=== PATIENT | male | born 1965 | race Caucasian/White ===

== ENCOUNTER 2021-12-18 08:37 | Emergency (ER) | payer OTHER ==
[~2021-12-18] VITALS: Ht 177.8 cm; Wt 87.1 kg
[~2021-12-18 08:37] MED LIST: AMOCLA500 PO; AMOCLA875 PO; CIPR500; CIPR500 PO; CODACE30 PO; CRUTCH3 USE; HYDACE5 PO; HYOS.125 SL; LOPE2C PO; META800 PO; METO10 PO; METR500; METR500 PO; NAPR500 PO; OXYACE5T PO; RXCLIN PO; RXNAPNA550 PO; RXOXYACE PO; TRAM50 PO; VANC125
[2021-12-18] MEDS ORDERED: TAMS.4ER PO (09:11)
[2021-12-18] MEDS ORDERED: OMEP20ER PO (09:11)
[2021-12-18] MEDS ORDERED: VENL150ER PO (09:11)
[2021-12-18] MEDS ORDERED: COLACE100 MG PO (09:12)
[2021-12-18] MEDS ORDERED: MELO7.5 (09:12)
[2021-12-18] MEDS ORDERED: ATOR10 PO (09:14)
[2021-12-18] MEDS ORDERED: Vitamin D1000 UNI1 PO (09:14)
[2021-12-18] MEDS ORDERED: TRAZ50 PO (09:14)
[2021-12-18] MEDS ORDERED: CYCL10 PO (09:14)
[2021-12-18] MEDS ORDERED: HYDPAM25 PO (09:15)
[2021-12-18 09:52] LABS: BASOPHILS ABSOLUTE AUTO 0.05 K/mm3 (0.00-0.23); BASOPHILS PERCENT AUTO 1 % (0-2); EOSINOPHILS ABSOLUTE AUTO 0.13 K/mm3 (0.00-0.68); EOSINOPHILS PERCENT AUTO 2 % (0-6); Hematocrit 43.2 % (37.0-53.0); Hemoglobin 14.3 g/dL (13.5-17.5); IMMATURE GRAN ABSOLUTE AUTO 0.02 K/mm3 (0.00-0.10); IMMATURE GRAN PERCENT AUTO 0 % (0-1); LYMPHOCYTES PERCENT AUTO 25 % (21-46); MONOCYTES ABSOLUTE AUTO 0.72 K/mm3 (0.16-1.47); MONOCYTES PERCENT AUTO 10 % (4-13); Mean Corpuscular HGB Conc 33.1 g/dL (31.5-36.5); Mean Corpuscular Volume 94 fL (80-100); Mean Platelet Volume 9.9 fL (9.1-12.4); NEUTROPHILS ABSOLUTE AUTO 4.73 K/mm3 (1.96-9.15); NEUTROPHILS PERCENT AUTO 63 % (41-73); Platelet Count 284 K/mm3 (150-400); RDW Coefficient Variation 13.4 % (11.7-14.2); RDW Standard Deviation 46.3 fL (35.1-46.3); Red Blood Cell Count 4.62 M/mm3 (4.30-5.90); White Blood Cell Count 7.55 K/mm3 (4.00-11.30)
[2021-12-18 10:13] LABS: Albumin, Blood 3.8 g/dL (3.4-5.0); Albumin/Globulin Ratio 1.1 (0.8-1.8); Bilirubin, Total 0.3 mg/dL (0.1-1.0); Calcium, Blood 8.8 mg/dL (8.5-10.1); Globulin, Blood 3.4 g/dL (2.2-4.0); Potassium, Blood 4.3 mmol/L (3.5-5.5); Total Protein, Blood 7.2 g/dL (6.4-8.2)
== END 2021-12-18 12:12 | disposition home or self-care (01) ==
LOC: ER 08:37
PROVIDERS: Student in an Organized Health Care Education/Training Program
DX: K40.90 Unilateral inguinal hernia, without obstruction or gangrene, not specified as recurrent (principal); E78.5 Hyperlipidemia, unspecified; K21.9 Gastro-esophageal reflux disease without esophagitis; F17.200 Nicotine dependence, unspecified, uncomplicated; Z91.038 Other insect allergy status; Z79.899 Other long term (current) drug therapy
CPT/HCPCS: 36415; 74177; 80053; 85025; 96374; 99284-25; J1170; Q9967

== ENCOUNTER → 2023-07-26 | Outpatient (CLI) | payer OTHER ==
[~2023-07-26] MED LIST changes: +ATOR10 PO; +COLACE100 MG PO; +CYCL10 PO; +HYDPAM25 PO; +MELO7.5; +OMEP20ER PO; +TAMS.4ER PO; +TRAZ50 PO; +VENL150ER PO; +Vitamin D1000 UNI1 PO
[2023-07-28 14:17] LABS: CALPROTECTIN,FECAL 87 ug/g (<=49)
== END ==
LOC: LAB 07:45 → LAB SHORT 07:45
PROVIDERS: Physician Assistant Medical
DX: K59.00 Constipation, unspecified (principal)
CPT/HCPCS: 83993